=== PATIENT | male | born 1975 | race African-American/Black ===

== ENCOUNTER → 2023-10-27 | Outpatient (CLI) | payer OTHER | LOC: RAD 12:36 | PROVIDERS: ATTEND Family Medicine | DX: M19.012 Primary osteoarthritis, left shoulder (principal); M21.822 Other specified acquired deformities of left upper arm ==

== ENCOUNTER → 2023-12-20 | Outpatient (CLI) | payer OTHER | END | disposition home or self-care (01) | LOC: MRI 13:00 | PROVIDERS: ATTEND Family Medicine | DX: M19.012 Primary osteoarthritis, left shoulder (principal); M77.8 Other enthesopathies, not elsewhere classified; M75.82 Other shoulder lesions, left shoulder; M25.712 Osteophyte, left shoulder; M94.212 Chondromalacia, left shoulder ==